=== PATIENT | female | born 2000 | race Caucasian/White ===

== ENCOUNTER 2025-10-06 12:13 | Emergency (ER) | payer MEDICAID ==
[~2025-10-06] VITALS: Ht 162.6 cm; Wt 51.6 kg
[2025-10-06 12:20] VITALS: BP 119/70; PULSE 59; TEMP 98.4; O2SAT 100
[2025-10-06 12:55] LABS: MEAN PLATELET VOLUME 8.2 FL (7.4-10.4); RED CELL DISTRIBUTION WIDTH 14.6 % (11.5-14.5)
[2025-10-06 13:06] VITALS: RESP 16
[2025-10-06 13:13] LABS: CREATININE 0.70 MG/DL (0.40-0.90); ETHANOL < 10 MG/DL (<10); TOTAL CARBON DIOXIDE 28.5 MMOL/L (24-32); eCRCL 102 ML/MIN; eGFR > 90 ML/MIN
[2025-10-06 13:33] LABS: LEUKOCYTE ESTERASE ,URINE NEGATIVE (Neg); NITRITES, URINE NEGATIVE (Neg); OCCULT BLOOD,URINE NEGATIVE (Neg)
[2025-10-06 13:34] LABS: URINE HCG NEGATIVE (NEG)
[2025-10-06 13:38] LABS: UA COLLECTION TYPE VOIDED
--- NOTE | 2025-10-06 13:42 | Physician Documentation ---
History of Present Illness ~ Chief Complaint: Mental Health Eval Stated Complaint: PYSCH EVAL Time Seen by MD: 13:07 OK to notify your PCP?: Yes Source: patient Mode of Arrival: POV, Police Exam Limitations: no limitations HPI Patient presents with multiple horizontal bilateral superficial cut jacobson to her wrists. She reports that she was brought in by police for a mental health eval but a 5150 was not written. She reports that today she got into a an argument with her boyfriend and went to the bathroom and decided to cut her wrist. She reports that she was not trying to end her life she was just trying to release her stress and anger. She has a history of cutting as a coping mechanism. There are scars from previous cut jacobson on her arms. She reports last time she cut herself was many years ago. She reports that she is 4 months and has a healthy baby at home. She denies any SI or HI. She has a long-term therapist and she plans to make contact with him on Wednesday. Medication Reconciliation Allergies: Coded Allergies: No Known Allergies (Unverified , 10/06/25) Past Medical History Past Medical History: Anxiety, Depression Review of Systems All Other Systems at this time: Reviewed and Negative Physical Exam Vital Signs: RN Vital Signs have been reviewed: Yes, Temperature: 98.4, Source: Oral, Heart Rate: 59, Respiratory Rate: 16, BP: 119/70, Pulse Oximetry: 100, Weight: 51.600 Oxygen Flow Rate: 0 Pulse Oximetry Reflects: adequate oxygenation Physical Exam General: Alert, no apparent distress. HEENT: PERRL, EOMI, no injection, moist mucous membranes. Neck: Full range of motion. Respiratory: Lungs clear, no respiratory distress. Chest: No accessory muscle use. Cardiovascular: Regular rate and rhythm, no murmurs. Gastrointestinal: Soft, nontender, nondistended. Bowels sounds present. Extremities: Normal range of motion, no deformity. Neurologic: Oriented x4. Psychiatric: Normal mood and affect. Skin: Normal color, warm and dry. No edema, no ecchymosis. Progress Results/Orders Reviewed/noted all lab results: Yes Results/Orders Orders - ROEL CHOI MD Med Rec (10/06/25 12:28) Close Observation Level (10/06/25 12:28) Covid19 Binax Poc Result Entry (10/06/25 12:28) Completed Philipp - ROEL CHOI MD Cbc/Diff (10/06/25 12:28) Urinalysis (10/06/25 12:28) Hcg, Ur Ql (10/06/25 12:28) Drug Screen, Urine (10/06/25 12:28) Ethanol (10/06/25 12:28) TSH (10/06/25 12:28) BMP (10/06/25 12:28) Laboratory Tests Test 10/06/25 12:38 10/06/25 12:57 White Blood Count 10.1 Red Blood Count 4.52 Hemoglobin 13.7 Hematocrit 41.0 Mean Corpuscular Volume 90.9 Mean Corpuscular Hemoglobin 30.3 Mean Corpuscular Hemoglobin Concent 33.3 Red Cell Distribution Width 14.6 H Platelet Count 269 Mean Platelet Volume 8.2 Neutrophils (%) (Auto) 78.8 H Lymphocytes (%) (Auto) 15.0 L Monocytes (%) (Auto) 5.1 Eosinophils (%) (Auto) 0.3 Basophils (%) (Auto) 0.8 Neutrophils # (Auto) 7.9 H Lymphocytes # (Auto) 1.5 Monocytes # (Auto) 0.5 Eosinophils # (Auto) 0.0 Basophils # (Auto) 0.1 CBC Comment Sodium Level 142 Potassium Level 4.1 Chloride Level 108 H Carbon Dioxide Level 28.5 Anion Gap 6 L Blood Urea Nitrogen 9 Creatinine 0.70 Estimated GFR/1.73 m2 > 90 BUN/Creatinine Ratio 12.9 Glucose Level 108 H Calcium Level 8.9 Albumin 4.0 Thyroid Stimulating Hormone (TSH) 2.12 Chemistry Comments Ethyl Alcohol Level < 10 Urine Specimen Description Voided Urine Color Yellow Urine Clarity Clear Urine pH 7.0 Urine Specific [place] 1.010 Urine Protein Negative Urine Glucose (UA) Negative Urine Ketones Negative Urine Occult Blood Negative Urine Nitrite Negative Urine Bilirubin Negative Urine Urobilinogen 0.2 Urine Leukocyte Esterase Negative Volume Urine Centrifuged 10 ml Urine HCG, Qualitative Negative Urine Comment Urine Opiates Screen Negative Urine Methadone Screen Negative Urine Fentanyl Screen Negative Urine Barbiturates Screen Negative Urine Phencyclidine Screen Negative Urine Amphetamines Screen Negative Urine Benzodiazepines Screen Negative Urine Cocaine Screen Negative Urine Cannabinoids Screen Positive Drug Screen Comment SARS-CoV-2 Antigen (Rapid) Negative Medical Decision Making Additional information obtaine: old records Findings Brought in for mental health evaluation. Labs unremarkable. Positive for THC but she admits to using marijuana. She is adamant that she is not trying to end her life but that she was cutting due to her anger during the argument with her boyfriend. Due to her history of cutting to relieve stress and her denying any SI or HI, she does not meet criteria for 1799 hold, as self mutilating behavior/cutting is not criteria. Police evaluated her on scene and felt that she did not meet [address] criteria. We discussed a CT plan for her as well as that she needs to follow up with her therapist as discussed. She is of sound mind and has capacity to make these decisions. 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 Follow up with your therapist as discussed in 1 week. Return back here for any new or worsening symptoms. Referrals: NO PRIMARY CARE PROVIDER (PCP) Education Educated: Patient Educated regarding: diagnosis, treatment, prognosis, need for follow up Additional Comment Medical Screen Exam This patient recieved a medical screening examination. After reviewing the individual's medical complaints with presenting symptoms and performing an appropriate physical examination, it was determined that no immediate life-t hreatening emergency medical condition is present. This individual is also not a women having contractions. Signature Scribe Signature: . Attestation: Scribed for Veronica Rodriguez by Veronica Miramontes NP . 10/06/25 13:41 Parts of this note were created using [employer] voice recognition software program. While efforts were made to correct any mistakes made by this voice recognition software program, nonsensical phrases may remain in this note. In addition, there may be errors and syntax, grammar, content and spelling. VERONICA RODRIGUEZ Oct 06, 2025 13:42 ROEL CHOI MD Oct 11, 2025 05:56
[2025-10-06 13:49] LABS: URINE AMPHETAMINE SCREEN NEGATIVE (Neg); URINE BARBITUATE SCREEN NEGATIVE (Neg); URINE BENZODIAZEPINES SCREEN NEGATIVE (Neg); URINE CANNABINOID SCREEN POSITIVE (Neg); URINE COCAINE SCREEN NEGATIVE (Neg); URINE METHADONE SCREEN NEGATIVE (Neg); URINE OPIATE SCREEN NEGATIVE (Neg); URINE PHENCYCLIDINE SCREEN NEGATIVE (Neg)
== END 2025-10-06 13:53 | disposition home or self-care (01) ==
LOC: ER 12:14
DX: O99.345 Other mental disorders complicating the puerperium (principal); F41.9 Anxiety disorder, unspecified; Z79.899 Other long term (current) drug therapy; Z20.822 Contact with and (suspected) exposure to COVID-19
CPT/HCPCS: 36415; 80048; 80305; 80320; 81003; 81025; 84443; 85025; 87811; 99283